=== PATIENT | female | born 1995 | race Caucasian/White ===

== ENCOUNTER 2020-07-16 08:10 | Inpatient (IN) | payer OTHER ==
[~2020-07-16] VITALS: Ht 162.6 cm; Wt 79.1 kg
[2020-07-16] VITALS (47 sets, daily range): BP systolic 91–138; BP diastolic 51–77; PULSE 56–110; TEMP 97.1–99.2
[2020-07-16] MEDS ORDERED: PRENATAL FORMU1 EAC3 PO (08:20)
[2020-07-16 09:29] LABS: BASO % 0.5 % (0.0-2.0); EOS % 0.2 % (0-4.0); GRAN # 6.7 (1.4-6.5); GRAN % 77.2 % (42.2-75.2); HEMOGLOBIN 12.3 g/dl (12.5-16.0); LYMPH # 1.4 (1.2-3.4); LYMPH % 15.5 % (20.0-51.0); MEAN CELL VOLUME 91 fl (80.0-100.0); MEAN CORPUSCULAR HEMOGLOBIN 30 pg (27.0-31.0); MEAN CORPUSCULAR HGB CONC 33 g/dl (33.0-37.0); MEAN PLATELET VOLUME 12.5 fl (7.4-10.4); MONO # 0.6 (0.1-0.6); MONO % 6.3 % (1.7-9.3); PLATELET COUNT 253 K/mm3 (130-400); RED BLOOD COUNT 4.09 M/mm3 (4.10-5.30); REDCELL DISTRIBUTION WIDTH-CV 12.9 % (11.5-14.5)
[2020-07-17] VITALS (23 sets, daily range): BP systolic 93–136; BP diastolic 51–95; PULSE 62–105; TEMP 97.4–99.2
[2020-07-18 06:35] LABS: HEMATOCRIT 34.5 % (37.0-47.0); HEMOGLOBIN 11.2 g/dl (12.5-16.0)
[2020-07-18 08:00] VITALS: BP 110/57; PULSE 65; TEMP 97.6
[2020-07-18 16:05] VITALS: BP 119/69; PULSE 58; TEMP 97.8
[2020-07-18] MEDS ORDERED: IBU600 MG PO (17:00)
[2020-07-18] MEDS ORDERED: PERCOCET 325 MG1 TA2 PO (17:01)
[2020-07-18 20:08] VITALS: BP 108/48; PULSE 71; TEMP 97.9
[2020-07-19 07:19] VITALS: BP 107/55; PULSE 59; TEMP 98.3
== END 2020-07-19 12:50 | disposition home or self-care (01) | DRG 788 ==
LOC: LDRO 08:10 → LDR 08:20 → OB 08:20
PROVIDERS: ADMIT Obstetrics & Gynecology
PROC: 10D00Z1 Extraction of Products of Conception, Low, Open Approach (ICD-10-PCS; principal; 2020-07-17)
DX: O99.02 Anemia complicating childbirth (principal); D64.9 Anemia, unspecified; O76 Abnormality in fetal heart rate and rhythm complicating labor and delivery; O99.824 Streptococcus B carrier state complicating childbirth; O62.2 Other uterine inertia; Z3A.39 39 weeks gestation of pregnancy; Z37.0 Single live birth
CPT/HCPCS: J0690; J1885; J2250; J2270; J2370; J2400; J2405; J2540; J3010; J7120

== ENCOUNTER → 2020-08-25 | Outpatient (CLI) | payer OTHER ==
[~2020-08-25] MED LIST: IBU600 MG PO; PERCOCET 325 MG1 TA2 PO; PRENATAL FORMU1 EAC3 PO
--- NOTE | 2020-08-25 13:49 | NUR ---
Senait Kvngvicente, presents for outpatient consult with 5+ week old baby boy, Eric Valladares, for a evaluation because she is not sure Eric is getting enough to eat from direct . Eric was born on [birth year] by c/section and weighed 8#1.8oz (3680 gms). Eric was exclusively until last week when he demand at the breast was often, q 1-3 hours and not acting satisfied. Pt fed him EBM by bottle after a feeding and he drank ~4oz and appeared content. The supplement feedings have continued; currently he receives 2-3 2oz supplements in the daytime, at [facility] pt is pumping and bottle feeding 4-5oz x3 feedings. Pt is able to pump about 4oz each feeding at [facility], and collects ~1-1.5oz after he has breastfed in the daytime. Pt states if she does not supplment him, she is fearful he will be at the breast very frequently and not get satisfied. Once swallows are slowed, pt advised on breast massage and compression to help transfer more milk; a slight increase in swallows is noted. After here, Eric had a weight gain of 2.2oz (64 gms) from the right breast and 2.2oz from the left for a total of 4.4oz. Pt states she does not feel the breasts are emptied well. Initially Eric seemed content, but after dressing and diaper change, he started to become fussy, arching, not calming with pacifier or usual techniques for fussy babies. Normaly pt would bottle feed him at this point, but without milk here she returns him to , which he is receptive to. Total intake after second feeding is 5.6oz. He does appear more satisfied, has a good burp with a little spit up and then has hiccups, however after about 10-15 minutes he does start getting fussy again. Discussion included possible causes: 1. Not being satisfied, although he was not rooting with his fussiness. 2. Reflux, LC tried holding him upright and using comfort measure. He did not have emesis, which is not a reported problem. Significant arching and tension with muscle tightness. 3. Tongue tie and questionable milk transfer. (Not so sure about this after he returned to breast and had another good intake.) NAVIN observes he can stick tongue out across the gum line but with digital exam he doesn't create a good suck on the finger, pt states he's not good at holding his pacifier, however, when he was in his car seat to go home, he seemed to have the tongue across the gum line and holding the pacifier fairly well. LC observed a thick frenulum but unsure if it impacts his tranfer of milk. 4. Possible lactose intolerance, although his stools are normal. Feeding plan options: feed on demand, exclusive for 3-4 days to see if he improves intake to meet his desire vs. continuation of current feeding combination of breast/pump/supplement. Follow up: LC suggests montoring for improvement with more frequent, on demand nursing and follow up with Dr. Hope to evaluate list of possible issues. Pt verbalizes understanding, indicates she will follow up as suggested. Questions invited and answered.
== END ==
LOC: LAC 12:55
DX: Z39.1 Encounter for care and examination of lactating mother (principal); Z71.89 Other specified counseling